=== PATIENT | male | born 1975 | race Caucasian/White ===

== ENCOUNTER 2016-03-02 09:09 | Outpatient (CLI) | payer OTHER ==
[2015-03-13 16:31] VITALS: BP 169/100
== END 2016-03-02 09:10 ==
LOC: LAB 09:09
PROVIDERS: ATTEND Family Medicine
DX: E11.9 Type 2 diabetes mellitus without complications (principal)
CPT/HCPCS: 36415; 83036

== ENCOUNTER 2017-03-01 08:13 | Outpatient (CLI) | payer OTHER ==
[2015-03-13 16:31] VITALS: BP 169/100
[2017-03-01 09:22] LABS: eGFR (African) > 60; eGFR (Non-African) > 60
== END 2017-03-01 08:14 ==
LOC: LAB 08:13
PROVIDERS: ATTEND Family Medicine
DX: E11.9 Type 2 diabetes mellitus without complications (principal)
CPT/HCPCS: 36415; 80053; 80061; 83036